=== PATIENT | female | born 1985 | race Caucasian/White ===

== ENCOUNTER 2017-03-01 05:59 | Emergency (ER) | payer OTHER ==
[~2017-03-01] VITALS: Ht 167.6 cm; Wt 54.0 kg
[~2017-03-01 05:59] MED LIST: ADV10050 INHALATION; ALBU18HF INHALATION; CEPH-443 PO; ONDA4TAB95 PO
[2017-03-01 06:03] VITALS: Ht 167.6 cm; Wt 54.0 kg
[2017-03-01] MEDS ORDERED: IPRATROPIUM (NEB) 0.5 MG/2.5 ML AMP INH STA ×2 (06:48→09:07)
[2017-03-01] MEDS ORDERED: LEVALBUTEROL (NEB) 1.25 MG/0.5 ML AMP INH STA ×2 (06:48→09:07)
[2017-03-01] MEDS ORDERED: predniSONE 20 MG TAB PO STA (06:48)
--- NOTE | 2017-03-01 09:39 | RADRPT ---
PROCEDURE: Chest x-ray CLINICAL INDICATION: Cough TECHNIQUE: Chest single view COMPARISON: 04/28/2014 FINDINGS: The heart is normal in size. The pulmonary vessels are normal in caliber. There is a vague slightl y nodular density in the left mid lung field and left lower lung. These may represent areas of evol ving pneumonia. Given the nodular appearance, continued follow-up is recommended to evaluate for re solution. Lungs otherwise clear. Costophrenic angles sharp. Bony thorax is unremarkable. IMPRESSION: 1. Question vague nodular infiltrate involving the left mid and lower lung field. This is suspicio us for developing pneumonia. Continued follow-up is recommended to evaluate for resolution RPTAT: HH .Ismael Tracy MD, MD Date Time Electronically viewed and signed by .Ismael Tracy MD, on 03/01/2017 09:39 .W/
--- NOTE | 2017-03-01 09:48 | ERD ---
ER Documentation Chief Complaint Date/Time DATE: 03/01/17 TIME: 09:48 Chief Complaint c/o asthma attack x 1 day. (+) cough. HPI This is a 31-year-old female who presents the emergency department today complaining of asthma exacerbation for the past couple of days. Patient states she has been out of her medication for the past 2 months that she did not have a primary care doctor. States that she usually takes Advair and albuterol. States that she used meth 2 days ago and does smoke cigarettes. Denies any travel, chest pain, use of oral contraceptive pills. Denies any fevers or chills. ROS All systems reviewed and are negative except as per history of present illness. Medications Home Meds Active Scripts Azithromycin* (Zithromax*) 250 Mg Tablet, 250 MG PO .ZPACK DIRECTED, #6 TAB TAKE 500 MG (2 TABS) THE FIRST DAY THEN 250 MG (1 TAB) DAYS 2-5 Prov:CHANA COLLAZO PA-C 03/01/17 Salmeterol Xinaf/Fluticasone* (Advair*) 250-50 Diskus Inhaler, 1 INH INHALATION BID, #1 INHALER Prov:CHANA COLLAZO PA-C 03/01/17 Albuterol Sulfate* (Proair HFA*) 8.5 Gm Hfa.aer.ad, 2 PUFF INH Q4, #1 INHALER Prov:CHANA COLLAZO PA-C 03/01/17 Salmeterol Xinaf-Fluticasone* (Advair*) 100/50 Diskus Inhaler, 1 INH INHALATION BID, #1 INHALER Prov:CARMELA PLATA PA-C 12/05/15 Albuterol Sulfate* (Ventolin HFA*) 18 Gm Hfa.aer.ad, 2 PUFF INHALATION Q4H, #1 INHALER Prov:CARMELA PLATA PA-C 12/05/15 Ondansetron Hcl* (Ondansetron Hcl*) 4 Mg Tablet, 4 MG PO Q4H Y for NAUSEA AND OR VOMITING, #10 TAB Prov:CARMELA PLATA PA-C 12/05/15 Cephalexin* (Keflex*) 500 Mg Capsule, 500 MG PO BID for 5 Days, CAP Prov:JENIFER SPIVEY PA-C 08/26/15 Allergies Allergies: Coded Allergies: No Known Allergy (Unverified , 11/30/13) PMhx/Soc History of Surgery: No Anesthesia Reaction: No Hx Neurological Disorder: No Hx Respiratory Disorders: Yes (ASTHMA) Hx Cardiac Disorders: No Hx Psychiatric Problems: No Hx Miscellaneous Medical Probl: No Hx Alcohol Use: Yes (SOCIALLY) Hx Substance Use: No Hx Tobacco Use: Yes ("A COUPLE A DAY") Smoking Status: Current every day smoker Physical Exam Vitals Vital Signs Date Time Temp Pulse Resp B/P Pulse Ox O2 Delivery O2 Flow Rate FiO2 03/01/17 11:05 98.3 92 22 96 03/01/17 09:48 85 18 96 21 03/01/17 07:10 82 18 96 21 03/01/17 06:03 98.4 113 22 151/89 94 Physical Exam Const: NAD Head: Atraumatic Eyes: Normal Conjunctiva ENT: Normal External Ears, Nose and Mouth. Neck: Full range of motion..~ No meningismus. Resp: Diffuse wheezing bilaterally in all lung hernandez Cardio: Regular rate and rhythm, no murmurs Abd: Soft, non tender, non distended. Normal bowel sounds Skin: No petechiae or rashes Back: No midline or flank tenderness Ext: No cyanosis, or edema Neur: Awake and alert Psych: Normal Mood and Affect Results 24 hrs Current Medications Medications (Trade) Dose Ordered Sig/Kenny Route PRN Reason Start Time Stop Time Status Last Admin Dose Admin Levalbuterol (Xopenex Neb) 5 mg ONCE STAT INH 03/01/17 06:48 03/01/17 06:50 DC 03/01/17 07:09 Ipratropium [place] (Atrovent 0.02% (Neb)) 1 mg ONCE STAT INH 03/01/17 06:48 03/01/17 06:50 DC 03/01/17 07:09 Prednisone (Prednisone) 60 mg ONCE STAT PO 03/01/17 06:48 03/01/17 06:50 DC 03/01/17 06:58 Levalbuterol (Xopenex Neb) 5 mg ONCE STAT INH 03/01/17 09:07 03/01/17 09:09 DC 03/01/17 09:47 Ipratropium Solgoh[place]ia (Atrovent 0.02% (Neb)) 1 mg ONCE STAT INH 03/01/17 09:07 03/01/17 09:09 DC 03/01/17 09:47 DIAGNOSTIC IMAGING REPORT Patient: HYUN GOTTI : 1985 Age: 31 Sex: F MR #: [id number] DOS: 03/01/17 0000 Ordering MD: CHANA COLLAZO PA-C Location: [facility] Room/Bed: PROCEDURE: Chest x-ray CLINICAL INDICATION: Cough TECHNIQUE: Chest single view COMPARISON: 04/28/2014 FINDINGS: The heart is normal in size. The pulmonary vessels are normal in caliber. There is a vague slightly nodular density in the left mid lung field and left lower lung. These may represent areas of evolving pneumonia. Given the nodular appearance, continued follow-up is recommended to evaluate for resolution. Lungs otherwise clear. Costophrenic angles sharp. Bony thorax is unremarkable. IMPRESSION: 1. Question vague nodular infiltrate involving the left mid and lower lung field. This is suspicious for developing pneumonia. Continued follow-up is recommended to evaluate for resolution RPTAT: HH .Ismael Tracy MD, MD Date Time Electronically viewed and signed by .Ismael Tracy MD, MD on 03/01/2017 09:39 .W/ CC: CHANA COLLAZO PA-C Procedures/MDM This is a 31-year-old female who presents the emergency department today for cough and asthma exacerbation for the past couple of days but worse last night. On physical exam patient had diffuse wheezing bilaterally in all lung hernandez. She has been out of her asthma medications for a couple of months. Patient denied any fevers or chills however given her symptoms I did obtain a chest x- ray as well.Patient was given 2 1 hour continuous breathing treatments as well as prednisone and symptoms improved. Chest x-ray shows a questionable vague nodule infiltrate involving the left mid and lower lung field. This is suspicious for developing pneumonia.I have explained this to the patient. I have explained to her that this vague nodule does need to have follow-up with a pulmonology specialist. I have given her a list of information explained to her that she should get repeat serial exam. Patient understood. Patient symptoms at this time most consistent with asthma exacerbation and possible early pneumonia. I do have low suspicion for PE, abscess, pleural effusion, pneumothorax. Patient's oxygen saturation was 94%. She was tachycardic on intake. Patient's oxygen saturation improved to 95. Her blood pressure was noted to be 178/114. I have explained to the patient that she does need to follow-up with her primary care doctor for further evaluation and management on that. Her blood pressure intake was 151/89.patient denies any headache dizziness, blurred vision of low suspicion for hypertensive emergency. Patient will be given a prescription for azithromycin, albuterol, Advair. Patient was counseled for greater than 3 minutes on smoking cessation. She was also instructed to stop abusing drugs. At this time the patient is stable for discharge and outpatient management. Patient should follow up with their PCP in the next 1-2 days. They may return to the emergency department sooner for any persistent or worsening of symptoms. Patient understood and agreed with the plan. Discussed the patient with Dr. Mills and he is in agreement with the plan. Departure Diagnosis: Primary Impression: Asthma exacerbation Additional Impression: Pneumonia Pneumonia type: due to unspecified organism Laterality: left Lung location : lower lobe of lung Qualified Code: J18.1 - Pneumonia of left lower lobe due to infectious organism Condition: CHANA Higgins PA-C Mar 01, 2017 09:48
[2017-03-01 11:05] VITALS: TEMP 98.3
[2017-03-01] MEDS ORDERED: ALBU8.5H3 INH (11:36)
[2017-03-01] MEDS ORDERED: ADV25050 INHALATION (11:39)
[2017-03-01] MEDS ORDERED: AZIT250T94 PO (11:40)
[2017-03-01 11:50] VITALS: BP 168/98; PULSE 88; RESP 22
== END 2017-03-01 11:50 | disposition home or self-care (01) ==
LOC: FTE 05:59
DX: J45.901 Unspecified asthma with (acute) exacerbation (principal); J18.1 Lobar pneumonia, unspecified organism; F17.210 Nicotine dependence, cigarettes, uncomplicated
CPT/HCPCS: 71010; 94644; 94645; J7512; Z7502; Z7610

== ENCOUNTER 2017-12-05 11:07 | Emergency (ER) | END 2017-12-05 14:21 | disposition home or self-care (01) ==

== ENCOUNTER 2017-12-23 15:06 | Emergency (ER) | END 2017-12-23 17:33 | disposition left against medical advice (07) ==

== ENCOUNTER 2018-01-14 18:25 | Emergency (ER) | END 2018-01-14 22:25 | disposition home or self-care (01) ==